=== PATIENT | female | born 1980 | race Caucasian/White ===

== ENCOUNTER 2019-11-04 03:57 | Emergency (ER) | payer SELFPAY ==
[~2019-11-04] VITALS: Ht 170.2 cm; Wt 69.4 kg
[2019-11-04 04:00] VITALS: BP_SYST 108
--- NOTE | 2019-11-04 04:03 | NUR ---
Patient to ER bed 4 to gown for evaluation. Side rails up.
--- NOTE | 2019-11-04 04:10 | NUR ---
PT BIB BLS FROM HOME A&O X4 C/O OF LEFT LEG PAIN ORIGINATING IN LEFT BUTTCHEEK AND RADIATING DOWN LEFT LEG, RATED A 8 OUT OF 10. PT STATES SHE WAS STANDING IN HER BATHROOM AT HOME COUGHING AND SHE FELT A SHARP PAIN RADIATE DOWN HER ENTIRE LEG. PT STATES TRIED TO RUB OUT THE CRAMP BUT IT DIDNT SEEM TO HELP. PTS TOOK TYLENOL AT HOME BEFORE COMING TO HOSPITAL. PT IS UNABLE TO BEAR WEIGHT ON EXTREMITY.
--- NOTE | 2019-11-04 04:11 | NUR ---
PT STATES SHE IS 3 MONTHS .
--- NOTE | 2019-11-04 04:20 | NUR ---
ER Dr. ENGLAND at bedside examining patient.
[2019-11-04] MEDS ORDERED: ACETAMINOPHEN 500 MG TABLET PO ONE (05:15)
--- NOTE | 2019-11-04 05:22 | NUR ---
Blood for labwork drawn from [facility]. Patient tolerated well.
[2019-11-04 05:44] LABS: HEMOGLOBIN 11.4 g/dL (12.0-16.0); WHITE BLOOD COUNT (AUTO) 9.5 K/uL (4.8-10.8)
[2019-11-04 05:49] LABS: BASOPHILS % (AUTO) 0.5 % (0.0-2.0); EOSINOPHILS % (AUTO) 0.2 % (0.0-4.0); LYMPHOCYTES # (AUTO) 0.9 K/uL (1.0-5.5); LYMPHOCYTES % (AUTO) 9.3 % (20.5-51.5); MEAN CORPUSCULAR HEMOGLOBIN 30 pg (27-31); MEAN CORPUSCULAR HGB CONC 35 % (32-36); MEAN CORPUSCULAR VOLUME 86 fL (79.0-98.0); MONOCYTES # (AUTO) 0.4 K/uL (0.0-1.0); NEUTROPHILS # (AUTO) 8.2 K/uL (1.8-7.7); PLATELET COUNT (AUTO) 167 K/uL (130-430); RED BLOOD CELL COUNT(AUTO) 3.85 MIL/uL (4.2-6.2); RED CELL DISTRIBUTION WIDTH 13.6 % (9.0-15.0)
[2019-11-04 05:54] LABS: CALCIUM 8.3 mg/dL (8.4-11.0); CREATININE 0.53 mg/dL (0.55-1.30); POTASSIUM 3.6 mmol/L (3.5-5.1)
[2019-11-04 06:03] LABS: ALBUMIN 2.7 g/dL (3.4-4.8); TOTAL BILIRUBIN 0.1 mg/dL (0.0-1.0)
[2019-11-04 06:57] VITALS: BP_SYST 122
--- NOTE | 2019-11-04 06:57 | NUR ---
Patient given written and verbal discharge instructions and verbalizes understanding. ER MD discussed with patient the results and treatment provided. Patient in stable condition. ID arm band removed. No Rx given. Patient educated on pain management and to follow up with PMD. Pain Scale . Opportunity for questions provided and answered. Medication side effect fact sheet provided.
== END 2019-11-04 06:57 | disposition home or self-care (01) ==
LOC: SED 03:57
DX: O26.891 Other specified pregnancy related conditions, first trimester (principal); R25.2 Cramp and spasm; Z3A.09 9 weeks gestation of pregnancy
CPT/HCPCS: 36415; 80053; 81025; 82306; 82607; 83735-TC; 85025; 99283